=== PATIENT | male | born 2005 | race American Indian/Alaskan Native ===

== ENCOUNTER 2025-04-27 14:03 | Emergency (ER) | payer MEDICAID ==
[2025-04-27] MEDS: cefTRIAXone 500 MG, Lidocaine 1% 1 ML IM ONE (14:45)
[2025-04-27 14:58] LABS: APPEARANCE,URINE CLEAR (CLEAR); GLUCOSE,URINE NEGATIVE (NEGATIVE); OCCULT BLOOD,URINE TRACE-INTACT (NEGATIVE)
[2025-04-27 15:07] LABS: EPITHELIAL CELLS,URINE RARE /HPF (NOT SEEN)
[2025-05-01 11:47] LABS: C.TRACHOMATIS BY TMA Negative (Negative); N.GONORRHOEAE BY TMA Negative (Negative)
== END 2025-04-27 14:54 | disposition home or self-care (01) ==
LOC: DL.ED 14:03
DX: Z20.2 Contact with and (suspected) exposure to infections with a predominantly sexual mode of transmission (principal)
CPT/HCPCS: 81001; 87491; 87591; 96372; 99283; A9270-GY; J0696; J2003